=== PATIENT | female | born 1980 | race Hispanic/Latino ===

== ENCOUNTER 2017-04-21 15:27 | Emergency (ER) | payer SELFPAY ==
[2017-04-21] MEDS ORDERED: Acetaminophen 500 MG TAB ONE (15:51)
[2017-04-21] MEDS ORDERED: Oseltamivir 75 MG CAP PO SCH (16:30)
== END 2017-04-21 17:06 | disposition home or self-care (01) ==
LOC: ERS 15:27
DX: O99.513 Diseases of the respiratory system complicating pregnancy, third trimester (principal); J11.1 Influenza due to unidentified influenza virus with other respiratory manifestations; Z3A.38 38 weeks gestation of pregnancy; Z79.899 Other long term (current) drug therapy
CPT/HCPCS: 87081; 87430; 99283

== ENCOUNTER 2017-04-24 00:25 | Emergency (ER) | payer SELFPAY | END 2017-04-24 01:32 | disposition home or self-care (01) | LOC: ERS 00:25 | DX: J11.1 Influenza due to unidentified influenza virus with other respiratory manifestations (principal) | CPT/HCPCS: 99282 ==

== ENCOUNTER 2017-05-04 20:53 | Inpatient (IN) | payer MEDICAID, OTHER, SELFPAY ==
[2017-05-04 21:37] VITALS: BMI 35.5
[2017-05-04] MEDS: Lactated Ringer's 1,000 ML IV SCH (21:50)
[2017-05-04] MEDS ORDERED: Lidocaine 1% (PF) 30 ML VIAL SC PRN (22:08)
[2017-05-04] MEDS ORDERED: Misoprostol 200 MCG TAB PR PRN (22:08)
[2017-05-04] MEDS ORDERED: Promethazine HCl 25 MG/ML VIAL IM PRN (22:08)
[2017-05-04] MEDS ORDERED: Ibuprofen 800 MG TAB PO PRN (22:08)
[2017-05-04] MEDS ORDERED: LR / Pitocin 40 units/1000 ml 1,000 ML IV PRN (22:08)
[2017-05-04] MEDS ORDERED: Ondansetron HCl/PF 4 MG/2 ML Vial IVP PRN (22:08)
[2017-05-04] MEDS ORDERED: HYDROcodone/Acetaminophen 5/325 mg Tablet PO PRN ×2 (22:08)
[2017-05-04] MEDS ORDERED: Benzonatate 100 MG CAP PO PRN (22:17)
[2017-05-04 22:26] LABS: Hemoglobin 11.7 g/dL (12.0-16.0); Mean Corpuscular Hemoglobin 28.5 pg (27.0-31.0); Mean Corpuscular Volume 83.9 fl (81.0-99.0); Mean Platelet Volume 9.2 fL (7.4-10.4); Platelet Count 223 thou/uL (130-400); RBC Distribution Width 12.7 % (11.5-14.5); Red Blood Cell (RBC) Count 4.11 mill/uL (4.20-5.40); White Blood Cell (WBC) Count 8.3 thou/uL (4.8-10.8)
[2017-05-04 23:02] LABS: HBSAg Index 0.24 S/CO (0-0.99); Hep B Surf Ag Non-Reactive S/CO (NonReactive); Syphilis Antibody Nonreactive (Nonreactive); Syphilis Antibody Index 0.03 S/CO (<1.00 Non-Reactive)
[2017-05-04] MEDS: Misoprostol 100 MCG TAB VAG SCH (23:11)
[2017-05-04 23:41] LABS: ALT (SGPT) 14 U/L (8-55); AST (SGOT) 17 U/L (5-34); Albumin 3.3 g/dL (3.5-5.0); Alkaline Phosphatase 216 U/L (40-150); Anion Gap 12 mmol/L (10-20); BUN (Urea Nitrogen) 18 mg/dL (7.0-18.7); Bilirubin, Total 0.2 mg/dL (0.2-1.2); Calc. Creatinine Clearance 135 mL/min (70-130); Calcium 8.8 mg/dL (7.8-10.44); Carbon Dioxide 22 mmol/L (22-29); Chloride 108 mmol/L (98-107); Estimated GFR-MDRD Greater than 90; Globulin 2.9 g/dL (2.4-3.5); Glucose 78 mg/dL (70-105); Potassium 3.9 mmol/L (3.5-5.1); Protein, Total 6.2 g/dL (6.0-8.3); Sodium 138 mmol/L (136-145)
--- NOTE | 2017-05-05 01:44 | PDOC.LDHP ---
Labor and Delivery H&P Chief complaint: scheduled induction HPI: Patient is a at 39.6 by 13.3w sono presents for IOL for A1GDM. Recent flu- like illness treated with Tamiflu on 04/22. Patient continues to cough, no fever or SOB. Patient also being treated with Macrobid for persistent asymptomatic bacteruria. Recently developed proteinuria at clinic. No elevated pressures. Today reports GOLDSMITH associated with viral illness, no vision changes, no abdominal pain, no LE swelling. +FM, irregular contractions, no LOF , no VB. Current gestational age (weeks): 39 (6) Due date: 05/05/17 Dating criteria: second trimester ultrasound Grav: 4 Para: 3 OB History Details: 3 prior , no complications Current complications: gestational diabetes Abnormal US findings: No Current medications: pre-nj vitamins, other (Macrobid) Previous surgical history: none Social history: none - Physical Exam Vital signs reviewed and normal: yes General: NAD, other (Coughing) Heart: RRR Lungs: CTAB Abdomen: gravid Extremeties: trace edema FHT: category 1 [place] contractions every: q5-7min - Vaginal Exam cm dilated: 2 Effacement: 25% Station: -2 - OB Labs Blood type: O RH: positive Antibody Screen: negative HIV: negative RPR: negative HEPSAg: negative 1 hour GCT: positive 3 hour GTT: positive GBS: negative Urine drug screen: not done Rubella: immune - Assessment L&D Assessment: medically indicated induction 36yo at 39.6 by 13.3w sono here for IOL for A1GDM. Found to have new proteinuria at clinic. - check preeclampsia labs despite normal pressures - Check blood sugar - Cytotec for induction, will recheck in 3-4hrs - Routine labor care for anticipated . - Plan Plan: admit to L&D, cervical ripening <Shannon Cadena - Last Filed: 05/05/17 01:40> <Penny Smith - Last Filed: 05/05/17 07:44> Allergies/Adverse Reactions: Allergies Allergy/AdvReac Type Severity Reaction Status Date / Time No Known Allergies Allergy Verified 05/04/17 21:25 Attending Addendum - Attending Addendum I personally evaluated the patient and discussed the management with Dr. Cadena I agree with the History, Examination, Assessment and Plan documented above with any addition or exceptions noted below. 36 yo female 39.6 wks by 13.3 wk sono presents for IOL 2/2 AMA and A1GDM. Cephalic. EFW 8 to 8.5 lbs. IOB labs and anatomy reviewed. 3T negative. GBS negative. Cat 1 tracing. Will start with miso x1. Monitor. Repeat SVE prn and q4 hours. Persistent +1 proteinuria on last 3 office visit. Last pro/cr ratio 0.293. Repeat labs today. Asymptomatic. Likely just gestational proteinuria. BP WNL. ABrayMD <Penny Smith - Last Filed: 05/05/17 07:44>
--- NOTE | 2017-05-05 03:39 | PDOC.LDPN ---
Labor & Delivery Progress Note - Subjective Subjective: comfortable - Objective Vital signs reviewed and normal: yes General: NAD, resting SVE: 3.5/75/-2 Dilation: 3.5 Effacement: 75% Station: -2 FHT: category 1 [place] contractions every: q1-2min Other exam findings: baseline 140's, mod variability, no accels, no decels - Assessment (1) Multigravida in third trimester Code(s): Z34.83 - ENCOUNTER FOR SUPRVSN OF NORMAL , THIRD TRIMESTER Current Visit: Yes Status: Acute Comment: at 40.0 by 13.3 sono presents for IOL for A1GDM. Cytotec x1, making good cervical change, tachysystole currently, will refrain from giving another dose of cytotec. Cat 1 strip. Continue routine care for . Recheck in 2hr. (2) Gestational diabetes mellitus Code(s): O24.419 - GESTATIONAL DIABETES MELLITUS IN , UNSP CONTROL Current Visit: Yes Status: Acute Comment: Glucose wnl. CC diet after delivery. Plan: continue plan of care, labor augmentation <Shannon Cadena - Last Filed: 05/05/17 03:37> - Assessment (1) Gestational proteinuria without hypertension during in third trimester Code(s): O12.13 - GESTATIONAL PROTEINURIA, THIRD TRIMESTER Current Visit: Yes Status: Acute Comment: Pro/Cr ratio improved. BP WNL. AST, PLT, Cr WNL. <Penny Smith - Last Filed: 05/05/17 07:48> Attending Addendum - Attending Addendum I personally evaluated the patient and discussed the management with Dr. Cadena I agree with the History, Examination, Assessment and Plan documented above with any addition or exceptions noted below. Progressing as expected. Continue to monitor closely. Ctx q2 mins. Cat 1 tracing. No need for further miso. Will repeat exam prn or in 2 hours. Start pit vs AROM. Glucose WNL. ABrayMD <Penny Smith - Last Filed: 05/05/17 07:48>
[2017-05-05 03:45] LABS: Creatinine, Urine 129.66 mg/dL (47-110)
[2017-05-05] MEDS ORDERED: Guaifenesin DM 100-10/5 ML UDCUP PO PRN (04:03)
[2017-05-05] MEDS ORDERED: Fentanyl 4 mcg/Marc 0.1% Cadd 100 ML ONE (05:23)
[2017-05-05] MEDS: Lactated Ringer's 1,000 ML IV SCH (05:41)
[2017-05-05] MEDS: Misoprostol 100 MCG TAB VAG SCH ×3 (05:56→11:00)
[2017-05-05] MEDS ORDERED: Ondansetron HCl/PF 4 MG/2 ML Vial IVP PRN ×2 (05:58→10:53)
[2017-05-05] MEDS ORDERED: Naloxone HCl 0.4 mg/ml Vial IVP PRN ×2 (05:58)
[2017-05-05] MEDS ORDERED: Acetaminophen 325 MG TAB PO PRN (05:58)
[2017-05-05] MEDS ORDERED: Eucerin (Mineral Oil/Petrolatum,White) 30 gm Jar TOP PRN (05:58)
[2017-05-05] MEDS ORDERED: ePHEDrine/0.9% NaCl/PF SYRINGE 50 mg/10 ml SLOW IVP PRN (05:58)
[2017-05-05] MEDS ORDERED: Promethazine HCl 25 MG/ML VIAL IM PRN (05:58)
[2017-05-05] MEDS ORDERED: diphenhydrAMINE 50 MG/ML VIAL IVP PRN (05:58)
[2017-05-05] MEDS ORDERED: Lactated Ringer's 500 ML IV PRN (05:58)
[2017-05-05] MEDS ORDERED: Fentanyl 4mcg/Marcaine 0.1% Cassette 100 ML EPIDURAL SCH (06:00)
[2017-05-05] MEDS ORDERED: Communication Order-Pharmacy FS SCH (06:00)
--- NOTE | 2017-05-05 07:32 | PDOC.LDPN ---
Labor & Delivery Progress Note - Subjective Subjective: comfortable - Objective Vital signs reviewed and normal: yes General: NAD, breathing through contractions Uterine fundus: non tender SVE: 07:25 Sd Dilation: 8 Effacement: 90% Station: 1+ FHT: category 1, early decelerations, variability present [place] contractions every: q1-2 min - Assessment (1) Elective induction of labor planned Code(s): [id number] - Current Visit: Yes Status: Acute Comment: - Term IOL for GDM - 36 year old @ 40.1 wks by 13.3 wk U/S - Cytotec x1; tachysystole - [place] progress quickly - Last check at 7:25 am - FHR 140 with several early accels - Continue expectant management Plan: continue plan of care
--- NOTE | 2017-05-05 08:35 | PDOC.OPDEL ---
OB Operative/Delivery Note Delivery Dr/Surgeon: Sd Assist: Luis Pre-Delivery Diagnosis: elective induction Procedure/Post Delivery Dx: spontaneous vaginal delivery Weeks gestation: 40 Anesthesia: epidural - Findings A Sex: male - 1 min: 8 - 5 min: 9 - Additional Findings/Plan Placenta delivered: spontaneous Repaired Obstetrical Laceration: 2nd degree Estimated blood loss: 200 Compilations/Other Findings: Delivering Physician: Sd Attending: Luis Procedure: Spontaneous Vaginal Delivery Anesthesia: epidural EBL: 200 ml Pre-op Diagnosis: 1. Induction of labor for GDM 2. Term intrauterine in labor 3. Asymptomatic bacteruria 4. AMA 5. Gestational proteinuria 6. Adjustment disorder Post-op Diagnosis: 1. Term intrauterine , delivered 2. same as above 3. Second degree perineal laceration, repaired Indications: A 36 y/o female presents to L&D for induction due to GDM Delivery Note: This is 36yo F @ 40.0 wks by 13.3 wk sono who delivered a viable M at 08:07 am. Following an uneventful antepartum course, a vigorous M was delivered over an intact perineum in the occipitoanterior position. Anterior Shoulder and then remainder of the body delivered. No nuchal cord. The head was held down and mouth and nares were bulb suctioned. Cord clamped and cut and cord blood collected. Placenta delivered intact with a 3 vessel cord noted. Fundal massage was performed and the fundus was firm. The cervix and vagina were inspected and a 2nd degree laceration was noted and repaired in the usual fashion with good approximation and hemostasis. went to nursery in good condition for routine care. Apgars were 8/9 at 1 & 5 minutes, respectively. Patient tolerated delivery well and went to after routine recovery/care. Post delivery plan: routine recovery <Vianney Beaver - Last Filed: 05/05/17 08:40> Attending Addendum - Attending Addendum I personally present and participated in the above procedure as documented. Uncomplicated term . TAGA male . Continue routine care for mother and infant. ABrayMD <Penny Smith - Last Filed: 05/05/17 22:16>
[2017-05-05] MEDS ORDERED: Preparation H Ointment 28 GM TUBE PR PRN (10:53)
[2017-05-05] MEDS ORDERED: Benzocaine/Menthol 20-0.5% 60 ML CAN TOP PRN (10:53)
[2017-05-05] MEDS ORDERED: LR / Pitocin 40 units/1000 ml 1,000 ML IV SCH (10:53)
[2017-05-05] MEDS ORDERED: Milk Of Magnesia 30 ML UDCUP PO PRN (10:53)
[2017-05-05] MEDS ORDERED: Adacel (T-DAP) 0.5 ML VIAL IM ONE (10:53)
[2017-05-05] MEDS ORDERED: Lanolin Ointment 7 GM TUBE TOP PRN (10:53)
[2017-05-05] MEDS ORDERED: Bisacodyl 10 MG SUPP PR PRN (10:53)
[2017-05-05] MEDS: Docusate Calcium (SURFAK) 240 MG CAP PO SCH ×2 (11:39→21:28)
[2017-05-05] MEDS: Prenatal Vitamin 1 TAB PO SCH (11:39)
[2017-05-05] MEDS: Ibuprofen 800 MG TAB PO SCH ×2 (15:34→21:28)
[2017-05-05] MEDS: Ferrous Sulfate 325 MG TAB PO SCH (17:16)
[2017-05-05] MEDS: Diabetic Tussin 200 MG/10 ML UDCUP PO PRN (21:52)
[2017-05-05] MEDS ORDERED: diphenhydrAMINE 25 MG CAP PO PRN (23:59)
[2017-05-06] MEDS: Diabetic Tussin 200 MG/10 ML UDCUP PO PRN (04:50)
[2017-05-06] MEDS: Ibuprofen 800 MG TAB PO SCH ×3 (04:50→21:32)
[2017-05-06] MEDS: Ferrous Sulfate 325 MG TAB PO SCH ×2 (08:08→17:18)
--- NOTE | 2017-05-06 08:14 | PDOC.PP ---
Addendum entered and electronically signed by Vianney Beaver DO 05/06/17 08 :22: Add to assessment: 1. Advanced maternal age: adequate care 2. Asymptomatic bacteruria: treated with macrobid 3. Adjustment disorder Original Note: Post Progress Note Post Day #: 1 Subjective: Patient doing well this AM. Ambulating without difficulty. Pain well controlled. Tolerating PO. PO intake tolerated: yes Flatus: yes Ambulation: yes Vital Signs (12 hours) Temp Pulse Resp BP Pulse Ox 05/06/17 07:56 97.7 F 67 18 98 05/06/17 04:30 97.7 F 69 20 132/82 05/06/17 00:00 98.4 F 66 20 104/57 L Weight Weight 77.111 kg - Physical Examination General: NAD Cardiovascular: no m/r/g, RRR Respiratory: clear to auscultation bilaterally, non-labored breathing Abdominal: + bowel sounds, lochia (wnl), no distention, appropriately TTP Deviation from normal: perineal laceration intact; no vaginal swelling Skin: no rash Neurological: no gross focal deficits Psychiatric: A&Ox3, normal affect Result Diagrams: 05/04/17 21:50 05/04/17 21:50 Additional Labs: Post Labs Blood Type O POSITIVE 05/04/17 21:50 Hep Bs Antigen Non-Reactive S/CO (NonReactive) 05/04/17 21:50 (1) Spontaneous vaginal delivery Code(s): O80 - ENCOUNTER FOR FULL-TERM UNCOMPLICATED DELIVERY Status: Acute Comment: 36 year old @ 40.1 wks by 13.3 wk U/S presented for IOL for GDM. Delivered TAGA male infant at 08:07 on 05/05/2016. Uncomplicated delivery. Apgars 8/9. -Routine care -Infant PCP will be [facility] -F/U within 2 weeks at [facility] -Anticipate D/C home today (2) Second degree perineal laceration during delivery, delivered Code(s): O70.1 - SECOND DEGREE PERINEAL LACERATION DURING DELIVERY Status: Acute Comment: -s/p repair -Inspected today; appears intact, no vaginal swelling. Pain well controlled. (3) Gestational diabetes mellitus Code(s): O24.419 - GESTATIONAL DIABETES MELLITUS IN , UNSP CONTROL Status: Acute QualifierTitle: Gestational diabetes mellitus control: diet-controlled Comment: -Glucose wnl <Vianney Beaver - Last Filed: 05/06/17 08:13> Vital Signs (12 hours) Temp Pulse Resp BP Pulse Ox 05/06/17 17:20 98.3 F 79 20 114/56 L 05/06/17 11:43 97.9 F 64 20 132/66 05/06/17 07:56 97.7 F 67 18 98 Weight Weight 77.111 kg Result Diagrams: 05/04/17 21:50 05/04/17 21:50 Additional Labs: Post Labs Blood Type O POSITIVE 05/04/17 21:50 Hep Bs Antigen Non-Reactive S/CO (NonReactive) 05/04/17 21:50 <Penny Smith - Last Filed: 05/06/17 18:27> Attending Addendum - Attending Addendum I personally evaluated the patient and discussed the management with Dr. Beaver I agree with the History, Examination, Assessment and Plan documented above with any addition or exceptions noted below. Doing well. No complications or complaints. Lochia appropriate. Fundus firm and nontender. Laceration healing well, no edema or discharge. Ok to consider d/c after 24 hours. Breast and bottle feeding. Mood stable. Follow up in 2 wks. Flori <Penny Smith - Last Filed: 05/06/17 18:27>
[2017-05-06] MEDS: Prenatal Vitamin 1 TAB PO SCH (09:18)
[2017-05-06] MEDS: Docusate Calcium (SURFAK) 240 MG CAP PO SCH ×2 (09:18→21:31)
[2017-05-06] MEDS ORDERED: Oxymetazoline HCl 0.05% ( 15 ML ) NASAL PRN (11:00)
[2017-05-06] MEDS ORDERED: guaiFENesin ER 600 MG TAB PO SCH ×2 (11:15→21:00)
[2017-05-06] MEDS ORDERED: Naloxone HCl 0.4 mg/ml Vial ONE ×2 (19:39)
[2017-05-07] MEDS: Ibuprofen 800 MG TAB PO SCH (06:00)
--- NOTE | 2017-05-07 06:08 | PDOC.PP ---
Post Progress Note Post Day #: 2 Subjective: Doing well this AM. No significant overnight events. Ambulating. Tolerating PO. Pain well controlled. PO intake tolerated: yes Flatus: yes Ambulation: yes Vital Signs (12 hours) Temp Pulse Resp BP Pulse Ox 05/06/17 20:15 99.3 F 94 20 146/72 H 95 Weight Weight 77.111 kg - Physical Examination General: NAD Cardiovascular: no m/r/g, RRR Respiratory: clear to auscultation bilaterally, non-labored breathing Abdominal: + bowel sounds, lochia (wnl), no distention, appropriately TTP Fundus firm & at: below umbilicus Skin: no rash Neurological: no gross focal deficits Psychiatric: A&Ox3, normal affect Result Diagrams: 05/04/17 21:50 05/04/17 21:50 Additional Labs: Post Labs Blood Type O POSITIVE 05/04/17 21:50 Hep Bs Antigen Non-Reactive S/CO (NonReactive) 05/04/17 21:50 (1) Spontaneous vaginal delivery Code(s): O80 - ENCOUNTER FOR FULL-TERM UNCOMPLICATED DELIVERY Status: Acute Comment: 36 year old @ 40.1 wks by 13.3 wk U/S presented for IOL for GDM. Delivered TAGA male infant at 08:07 on 05/05/2016. Uncomplicated delivery. Apgars 8/9. -Routine care - PCP will be [facility] -F/U within 2 weeks at [facility] -D/C home today (2) Second degree perineal laceration during delivery, delivered Code(s): O70.1 - SECOND DEGREE PERINEAL LACERATION DURING DELIVERY Status: Acute Comment: -s/p repair -Pain well controlled -Voiding/stooling normally (3) Gestational diabetes mellitus Code(s): O24.419 - GESTATIONAL DIABETES MELLITUS IN , UNSP CONTROL Status: Acute QualifierTitle: Gestational diabetes mellitus control: diet-controlled Comment: -Glucose wnl (4) Advanced maternal age (AMA) in Code(s): [id number] - Status: Acute Comment: -Good care (5) Adjustment disorder Code(s): F43.20 - ADJUSTMENT DISORDER, UNSPECIFIED Status: Acute Comment: - Patient doing well. No concerns at this time. <Vianney Beaver - Last Filed: 05/07/17 07:02> Vital Signs (12 hours) Temp Pulse Resp BP Pulse Ox 05/06/17 20:15 99.3 F 94 20 146/72 H 95 Weight Weight 77.111 kg Result Diagrams: 05/04/17 21:50 05/04/17 21:50 Additional Labs: Post Labs Blood Type O POSITIVE 05/04/17 21:50 Hep Bs Antigen Non-Reactive S/CO (NonReactive) 05/04/17 21:50 <Penny Smith - Last Filed: 05/07/17 07:36> Attending Addendum - Attending Addendum I personally evaluated the patient and discussed the management with Dr. Beaver I agree with the History, Examination, Assessment and Plan documented above with any addition or exceptions noted below. Doing well. PPD#2. No complications. Okay for d/c to home today. F/U with [facility] in 2 wks. Monitor mood. Precautions discussed. Will readdress contraception at follow up OV. Flori <Penny Smith - Last Filed: 05/07/17 07:36>
[2017-05-07 08:04] VITALS: BP 120/72; TEMP 98
== END 2017-05-07 14:51 | disposition home or self-care (01) | DRG 775 ==
LOC: L&D 20:53 → 3SE 05-05 10:53
PROVIDERS: ADMIT Student in an Organized Health Care Education/Training Program; ATTEND Student in an Organized Health Care Education/Training Program
PROC: 10E0XZZ Delivery of Products of Conception, External Approach (ICD-10-PCS; principal; 2017-05-05)
PROC: 0KQM0ZZ Repair Perineum Muscle, Open Approach (ICD-10-PCS; 2017-05-05)
PROC: 3E033VJ Introduction of Other Hormone into Peripheral Vein, Percutaneous Approach (ICD-10-PCS; 2017-05-05)
DX: O24.429 Gestational diabetes mellitus in childbirth, unspecified control (principal); F43.20 Adjustment disorder, unspecified; O12.14 Gestational proteinuria, complicating childbirth; O70.1 Second degree perineal laceration during delivery; Z3A.40 40 weeks gestation of pregnancy; Z37.0 Single live birth; O76 Abnormality in fetal heart rate and rhythm complicating labor and delivery
CPT/HCPCS: 51702; 80053; 82570; 84156; 85027; 86780; 87340; 99285; J2001; J2310

== ENCOUNTER 2022-01-28 20:49 | Emergency (ER) | payer SELFPAY ==
[2022-01-28 21:16] LABS: #Lymphocytes 2.2 thou/uL (1.20-3.40); #Monocytes 0.4 thou/uL (0.11-0.59); #Neutrophils 7.9 thou/uL (1.40-6.50); %Basophils 0.2 % (0.0-1.0); %Eosinophils 0.4 % (0.0-10.0); %Lymphocytes 20.9 % (21.0-51.0); %Monocytes 4.2 % (0.0-10.0); %Neutrophils 74.4 % (42.0-75.0); Mean Corpuscular HGB CONC 32.9 g/dL (32.0-36.0); Mean Corpuscular Hemoglobin 27.7 pg (27.0-31.0); Mean Corpuscular Volume 84.2 fL (78.0-98.0); Mean Platelet Volume 8.7 fL (7.4-10.4); Platelet Count 244 thou/uL (130-400); RBC Distribution Width 12.1 % (11.5-14.5); Red Blood Cell (RBC) Count 4.69 mill/uL (4.20-5.40); White Blood Cell (WBC) Count 10.6 thou/uL (4.8-10.8)
[2022-01-28 21:36] LABS: ALT (SGPT) 14 U/L (8-55); AST (SGOT) 14 U/L (5-34); Albumin 4.5 g/dL (3.5-5.0); Alkaline Phosphatase 97 U/L (40-110); Anion Gap 14 mmol/L (10-20); BUN (Urea Nitrogen) 12 mg/dL (7.0-18.7); Bilirubin, Total 0.4 mg/dL (0.2-1.2); Calc. Creatinine Clearance 0 mL/min (70-130); Calcium 9.3 mg/dL (7.8-10.44); Carbon Dioxide 20 mmol/L (22-29); Chloride 105 mmol/L (98-107); Estimated GFR 114; Globulin 3.2 g/dL (2.4-3.5); Glucose 132 mg/dL (70-105); Potassium 3.5 mmol/L (3.5-5.1); Protein, Total 7.7 g/dL (6.0-8.3); Sodium 135 mmol/L (136-145)
[2022-01-28] MEDS ORDERED: Aspirin Chewable 81 MG TAB ONE (22:50)
== END 2022-01-29 01:03 | disposition home or self-care (01) ==
LOC: ERS 20:49
DX: R07.89 Other chest pain (principal); F41.9 Anxiety disorder, unspecified; Z86.73 Personal history of transient ischemic attack (TIA), and cerebral infarction without residual deficits
CPT/HCPCS: 36415; 71045; 80053; 83690; 84484; 85025; 93005